=== PATIENT | male | born 1970 | race Two or more races ===

== ENCOUNTER 2019-01-08 09:06 | Observation (INO) | payer MEDICAID ==
[2019-01-03 11:36] LABS: BASOPHILS % (AUTO) 0.4 % (0-1); EOSINOPHILS # (AUTO) 0.1 X10'3 (0-0.9); EOSINOPHILS % (AUTO) 1.5 % (0-6); LYMPHOCYTES # (AUTO) 1.6 X10'3 (1.1-4.8); LYMPHOCYTES % (AUTO) 19.4 % (21-51); MEAN CORPUSCULAR HEMOGLOBIN 30.7 PG (27.0-31.0); MEAN CORPUSCULAR HGB CONC 34.2 g/dL (33.0-36.5); MEAN CORPUSCULAR VOLUME 89.6 FL (78-98); MONOCYTES # (AUTO) 0.5 X10'3 (0-0.9); MONOCYTES % (AUTO) 5.8 % (2-12); NEUTROPHILS # (AUTO) 6.1 X10'3 (1.8-7.7); NEUTROPHILS % (AUTO) 72.9 % (42-75); PRE OP HEMATOCRIT 46.4 % (42.0-52.0); PRE OP HEMOGLOBIN 15.9 g/dL (14.0-17.9); PRE OP PLATELET COUNT 296 X10'3 (140-440); RED BLOOD COUNT 5.18 X10'6 (4.70-6.10); RED CELL DISTRIBUTION WIDTH 13.5 % (11.5-14.5)
[2019-01-03 11:56] LABS: ALBUMIN 3.7 G/DL (3.4-5.0); ALKALINE PHOSPHATASE 75 IU/L (46-116); BLOOD UREA NITROGEN 10 MG/DL (7-18); BUN/CREATININE RATIO 9.2 (5.4-32.0); CALCIUM 8.8 MG/DL (8.5-10.1); CHLORIDE 106 MMOL/L (99-107); CREATININE 1.09 MG/DL (0.60-1.10); PRE OP ALT 33 U/L (30-65); PRE OP ANION GAP 10 (8-16); PRE OP AST 18 U/L (10-37); PRE OP BILIRUB, TOTAL 0.7 MG/DL (0.0-1.0); PRE OP GLUCOSE 97 MG/DL (70-104); PRE OP POTASSIUM 3.7 MMOL/L (3.4-5.1); PRE OP SODIUM 142 MMOL/L (135-145); TOTAL PROTEIN 7.5 G/DL (6.4-8.2); eGFR 72 ML/MIN
[2019-01-08] VITALS (17 sets, daily range): BP systolic 109–143; BP diastolic 71–99
[~2019-01-08] VITALS: Ht 170.2 cm; Wt 108.9 kg
[~2019-01-08 09:06] MED LIST: ASPI-1265 PO; ATOR10TA70 PO; CETI-102 PO; cefazolin/dext.iso 2gm/50ml 50 ML IV ONE; famotidine 20mg tablet PO ONE; ringers solution, lacted 1,000 ML IV SCH
[2019-01-08] MEDS ORDERED: ringers solution, lacted 1,000 ML IV SCH (11:34)
[2019-01-08] MEDS ORDERED: meperidine/PF 25mg/ml syringe IV PRN ×2 (11:35)
[2019-01-08] MEDS ORDERED: ondansetron/PF 4mg/2ml inj IV PRN ×2 (11:35→14:15)
[2019-01-08] MEDS ORDERED: proCHLORperazine 10 MG/2 ml inj IV PRN (11:35)
[2019-01-08] MEDS ORDERED: morphine 4 MG/ML inj SYRINge IV PRN ×2 (11:35)
[2019-01-08] MEDS ORDERED: methylene blue (5mg/ml) 50mg/10ml ampul IV ONE (11:51)
[2019-01-08] MEDS ORDERED: BUPIVAcaine/PF 2.5 mg/ml (0.25%) 30ml vial ONE (11:52)
[2019-01-08] MEDS ORDERED: BUPIVACAINE liposomal/PF 13.3 MG/ML vial IM ONE (11:52)
[2019-01-08] MEDS ORDERED: sevoflurane 250ml liquid IH ONE (12:10)
[2019-01-08] MEDS ORDERED: midazolam 2 mg/2 ml injection ONE (12:17)
[2019-01-08] MEDS ORDERED: fentaNYL /PF 50mcg/ml 5ml ampule ONE (12:17)
[2019-01-08] MEDS ORDERED: LIDOcaine 2% (20mg/ml) 5ml vial ONE (12:33)
[2019-01-08] MEDS ORDERED: ondansetron/PF 4mg/2ml inj ONE (12:33)
[2019-01-08] MEDS ORDERED: propofol inj 20 ML IV ONE (12:33)
[2019-01-08] MEDS ORDERED: dexamethasone sod phosphate 4mg/ml inj. ONE (12:33)
--- NOTE | 2019-01-08 13:13 | NUR ---
Received from OR via , accompanied by Anesthesiologist DR SORENSEN and report given by Anesthesiolgist. AWAKENS TO VOICE. VITALS STABLE. DRESSING DI. ANA PAIN.
[2019-01-08] MEDS: meperidine/PF 25mg/ml syringe IV PRN ×4 (13:41→17:38)
[2019-01-08] MEDS ORDERED: dibucaine ointment 28gm RC PRN (14:15)
[2019-01-08] MEDS ORDERED: HYDROcodone/acetaminophen 5mg/325mg tablet PO PRN (14:15)
--- NOTE | 2019-01-08 14:26 | NUR ---
Report called to receiving nurse. Transferred via BED Belongings . Special Issues communicated to receiving nurse. AWAKE AND ORIENTED. VITALS STABLE. DRESSING DI. STATES PAIN IMPROVING. TO SURGICAL RM 346A AT THIS TIME.
--- NOTE | 2019-01-08 14:45 | NUR ---
Received pt 1445, A&O, no bleeding, or draining from surgical site. Pt accompanied by one staff member and his mother. Pt drank 1/2 cup of water in recovery, pt tolerated fluids well, no nausea or vomiting. Post op vitals initiated, vitals within normal range.
--- NOTE | 2019-01-08 15:28 | NUR ---
Patient in room [facility] 346. I have received report from [place] PALAFOX in recovery and had the opportunity to ask questions and assume patient care.
[2019-01-08] MEDS: HYDROcodone/acetaminophen 10/325mg tab PO PRN ×2 (16:16→20:42)
--- NOTE | 2019-01-08 18:31 | NUR ---
Problems reprioritized. Patient report given, questions answered & plan of care reviewed with Rochelle PALAFOX.
--- NOTE | 2019-01-08 18:39 | NUR ---
Patient in room [facility] 346. I have received report from Ronda PALAFOX and had the opportunity to ask questions and assume patient care. Pt sitting up in bed eating his CL tray with at bedside. No signs of distress, will continue to monitor.
[2019-01-08] MEDS: psyllium seed 3.4 gm packet PO SCH (20:41)
[2019-01-09] VITALS: BP 109/71
--- NOTE | 2019-01-09 06:00 | NUR ---
Patient in room [facility] 349. I have received report from CED PALAFOX and had the opportunity to ask questions and assume patient care.
--- NOTE | 2019-01-09 06:11 | NUR ---
Problems reprioritized. Patient report given, questions answered & plan of care reviewed with Ronda PALAFOX and Nereyda PALAFOX.
[2019-01-09 07:00] VITALS: BP 114/79
[2019-01-09] MEDS: HYDROcodone/acetaminophen 10/325mg tab PO PRN (07:43)
[2019-01-09] MEDS: psyllium seed 3.4 gm packet PO SCH (07:44)
--- NOTE | 2019-01-09 07:47 | NUR ---
Pt had a pain level 6/10, I watched pt take and swallowed [place] 10.
[2019-01-09] MEDS ORDERED: atorvastatin 10mg tablet PO SCH (08:00)
[2019-01-09] MEDS ORDERED: cetirizine 10mg tablet PO SCH (08:00)
[2019-01-09] MEDS ORDERED: aspirin 81mg tab.chew PO SCH (08:30)
[2019-01-09 12:20] VITALS: BP 114/72
== END 2019-01-09 13:30 | disposition home or self-care (01) ==
LOC: PAS 09:06 → SUR 3N 14:19
PROVIDERS: ADMIT Surgery; ATTEND Surgery
DX: K60.1 Chronic anal fissure (principal); K64.4 Residual hemorrhoidal skin tags; K64.8 Other hemorrhoids; R94.31 Abnormal electrocardiogram [ECG] [EKG]
CPT/HCPCS: 36415; 46261; 80053; 82948; 85025; 93005; 96374; 96376; A6224; C9290; G0378; J1100; J2001; J2175; J2250; J2405; J2704; J3010; J3490; Q9968; A4215; A4618; A6449; A7000; J7120